=== PATIENT | male | born 1970 | race Caucasian/White ===

== ENCOUNTER 2021-04-28 16:28 | Emergency (ER) | payer OTHER ==
[~2021-04-28] VITALS: Ht 165.1 cm; Wt 81.8 kg
[2021-04-28] MEDS ORDERED: ATEN-72 PO (16:32)
[2021-04-28 18:40] VITALS: BP 138/68
== END 2021-04-28 18:41 | disposition home or self-care (01) ==
LOC: EMS 16:28
DX: S61.211A Laceration without foreign body of left index finger without damage to nail, initial encounter (principal); I10 Essential (primary) hypertension; W27.8XXA Contact with other nonpowered hand tool, initial encounter; Y93.89 Activity, other specified; Y92.89 Other specified places as the place of occurrence of the external cause; Y99.8 Other external cause status
CPT/HCPCS: 12001; 99283